=== PATIENT | female | born 1975 | race Caucasian/White ===

== ENCOUNTER 2023-01-30 11:40 | Emergency (ER) | payer BC, SELFPAY ==
[2023-01-30] VITALS (43 sets, daily range): BP systolic 125–144; BP diastolic 60–97; PULSE 67–85; RESP 8–26; TEMP 36.3; O2SAT 91–100; BMI 34.0
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
[2023-01-30] MEDS: ONDANSETRON 4 MG/2 ML INJ IV (11:47)
[2023-01-30] MEDS: HYDROMORPHONE 1 MG INJ IV ×3 (11:48→14:55)
--- NOTE | 2023-01-30 12:39 | DI.CT.S_ITS ---
PROCEDURE: CT LE LT W CON INDICATIONS: tibial plateau fracture on Xray, per ortho TECHNIQUE: Noncontrast 1-1.5 mm axial sections acquired from the mid-patella to the proximal tibia, with coronal and sagittal reformats. COMPARISON: [facility], , XR KNEE LT 1TO2V, 01/30/2023, 11:43. FINDINGS: Image quality: Excellent. Bones: Comminuted fracture of the lateral tibial plateau is present, which demonstrates roughly 10 mm of maximal depression, and extends to the knee joint. Soft tissues: Lipohemarthrosis is present. IMPRESSION: Lateral tibial plateau fracture, as seen by plain film. Dictated by: Tello Madera M.D. on 01/30/2023 at 12:05 Approved by: Tello Madera M.D. on 01/30/2023 at 12:06
[2023-01-30 12:51] LABS: Add Manual Diff / Slide Review NO; Basophils Absolute Auto 0 /uL (0-100); Basophils Percent Auto 0.3 % (0-2); Eosinophils Absolute Auto 0 /uL (0-450); Hematocrit 41.5 % (36-46); Lymphocytes Absolute Auto 2800 /uL (1100-4500); Lymphocytes Percent Auto 37.2 % (25-40); Mean Corpuscular HGB Conc 33.8 % (30-36); Mean Corpuscular Hemoglobin 29.8 PG (26-34); Mean Corpuscular Volume 88.2 fL (80-100); Monocytes Absolute Auto 500 /uL (0-900); Monocytes Percent Auto 6.5 % (3-14); Neutrophils Absolute Auto 4200 /uL (1500-7000); Platelet Count 272 X10^3/uL (150-400); Red Cell Distribution Width 13.5 % (11.6-14.8); White Blood Cell Count 7.5 X10^3/uL (4.5-11.0)
[2023-01-30 12:53] LABS: BUN Creatinine Ratio 21.1 (6-22); Blood Urea Nitrogen 15 mg/dL (7-17); Calcium 9.1 mg/dL (8.4-10.2); Carbon Dioxide 29 mmol/L (22-32); Chloride 102 mmol/L (98-107); Estimated Glomerular Filt Rate > 60 mL/min (>60); Glucose 106 mg/dL (70-100); HEMOLYSIS 22 (0-50); Potassium 3.7 mmol/L (3.4-5.1); Sodium 137 mmol/L (137-145)
[2023-01-30 13:13] LABS: COVID19 -Nasal RAPID Negative (Negative)
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
--- NOTE | 2023-01-30 14:56 | PC.NURSE ---
purse, car keys, boots, helmet, water bottle, jacket all handed to daughter, Anita Andrews. patient's black beaded bracelet removed from left wrist upon arrival and dropped into purse. pt and daughter informed of this.
== END 2023-01-30 15:03 | disposition short-term general hospital (02) ==
PROVIDERS: Emergency Provider Emergency Medicine
DX: S82.142A Displaced bicondylar fracture of left tibia, initial encounter for closed fracture (principal); S52.122A Displaced fracture of head of left radius, initial encounter for closed fracture; S63.592A Other specified sprain of left wrist, initial encounter; S63.601A Unspecified sprain of right thumb, initial encounter; V29.99XA Rider (driver) (passenger) of other motorcycle injured in unspecified traffic accident, initial encounter; Z20.822 Contact with and (suspected) exposure to COVID-19
CPT/HCPCS: 29505; 71045; 73070; 73100; 73140; 73502; 73552; 73560; 73700; 80048; 85025; 85610; 87635; 96374; 96375; 96376; 99285; 99291; C9803; G0390; J1170; J2405